=== PATIENT | female | born 1965 ===

== ENCOUNTER 2023-04-17 09:39 | Inpatient (IN) | payer OTHER ==
[~2023-04-17] VITALS: Ht 167.6 cm; Wt 64.9 kg
[2023-04-17] MEDS ORDERED: HYDROCHLOROTHIA25 MG PO (12:09)
[2023-04-17] MEDS ORDERED: DIOVAN320 MG PO (12:09)
[2023-04-17] MEDS ORDERED: HORIZANT300 MG PO (12:09)
[2023-04-17] MEDS ORDERED: NAPR500T14 PO (12:10)
[2023-04-17] MEDS ORDERED: ACID REDUCER20 M1 PO (12:10)
[2023-04-17] MEDS ORDERED: OMEGA 3-6-9 CO400 MG PO (12:10)
[2023-04-17] MEDS ORDERED: D3 DOTS50 MCG PO (12:11)
[2023-04-17] MEDS ORDERED: METFORMIN HCL1000 M2 PO (12:17)
[2023-04-24] MEDS ORDERED: CEFAZOLIN SODIUM 1,000 MG VIAL ONE ×2 (06:56→17:31)
[2023-04-24] MEDS ORDERED: VANCOMYCIN HCL 1,000 MG VIAL ONE (07:11)
[2023-04-24] MEDS ORDERED: BUPIVACAINE HCL/PF 0.5% 30ML ML ONE ×2 (07:11→07:16)
[2023-04-24] MEDS ORDERED: HEMOSTATIC MATRIX 1 KIT KIT TOP ONE ×2 (07:11→11:45)
[2023-04-24] MEDS ORDERED: DEXAMETHASONE SODIUM PHOSPHATE 4 MG/ML VIAL ONE (07:17)
[2023-04-24] MEDS ORDERED: LIDOCAINE HCL/EPINEPHRINE 50ML VIAL IJ ONE (09:28)
[2023-04-24] MEDS ORDERED: DEXAMETHASONE SODIUM PHOSPHATE 4 MG/ML VIAL IV ONE (11:45)
[2023-04-24] MEDS ORDERED: CEFAZOLIN SODIUM 1,000 MG VIAL IV ONE (11:45)
[2023-04-24] MEDS ORDERED: VANCOMYCIN HCL 1,000 MG VIAL IR ONE ×2 (11:45)
[2023-04-24] MEDS ORDERED: LIDOCAINE HCL 2% 20ML VIAL IJ ONE (11:45)
[2023-04-24] MEDS ORDERED: METHYLPREDNISOLONE ACETATE 40 MG/ML VIAL ONE (12:01)
[2023-04-24] MEDS ORDERED: METHYLPREDNISOLONE ACETATE 40 MG/ML VIAL IU ONE (12:15)
[2023-04-24] MEDS ORDERED: 0.9 % SODIUM CHLORIDE 1,000 ML IV SCH (12:45)
[2023-04-24] MEDS ORDERED: ENALAPRILAT DIHYDRATE 1.25 MG/ML VIAL IV PRN (12:45)
[2023-04-24] MEDS ORDERED: PROMETHAZINE HCL 50 MG/ML AMPUL IM PRN (12:45)
[2023-04-24] MEDS ORDERED: FAMOtidine 20 MG TABLET PO SCH (17:00)
[2023-04-24] MEDS ORDERED: DOCUSATE SODIUM 100MG CAP PO SCH (17:00)
[2023-04-24] MEDS ORDERED: CEFAZOLIN SODIUM 1,000 MG in 0.9 % SODIUM CHLORIDE 50 ML IV SCH (17:00)
[2023-04-24] MEDS ORDERED: ONDANSETRON HCL 2 MG/ML VIAL ONE (20:11)
[2023-04-24] MEDS ORDERED: GABAPENTIN 800 MG TABLET PO SCH (21:00)
[2023-04-25] MEDS ORDERED: CEFAZOLIN SODIUM 1,000 MG VIAL ONE (00:14)
[2023-04-25] MEDS ORDERED: ACETAMINOPHEN 500 MG GEL..CAP PO PRN (11:45)
[2023-04-25] MEDS ORDERED: NALOXONE HCL 0.4 MG/ML AMPUL IV PRN (13:30)
[2023-04-25] MEDS ORDERED: fentaNYL 25 MCG PATCH.TD72 TD SCH (13:30)
[2023-04-25] MEDS ORDERED: DEXAMETHASONE SODIUM PHOSPHATE 4 MG/ML VIAL IV SCH (17:00)
[2023-04-25] MEDS ORDERED: GABAPENTIN 300 MG CAPSULE PO SCH (17:00)
[2023-04-25] MEDS ORDERED: ACETAMINOPHEN 500 MG GEL..CAP PO SCH (18:00)
[2023-04-26 02:50] LABS: HEMATOCRIT 30.3 % (36.0-45.00); HEMOGLOBIN 10.2 g/dL (12.0-15.00); MEAN CELL VOLUME 88.3 fL (80.00-100.00); MEAN CORPUSCULAR HEMOGLOBIN 29.8 pg (27.00-32.0); MEAN CORPUSCULAR HGB CONC 33.7 g/dl (32.0-36.0); PLATELET COUNT 238 K/uL (150-450); RED BLOOD COUNT 3.43 M/uL (4.00-6.00); RED CELL DISTRIBUTION WIDTH 13.4 % (11.5-14.5)
[2023-04-26 03:01] LABS: CALCIUM 9.3 mg/dL (8.5-10.1); CREATININE SERUM 1.12 mg/dL (0.55-1.02); GFR 49.79; POTASSIUM 3.81 mEq/L (3.5-5.1)
== END 2023-04-26 13:47 | disposition home or self-care (01) | DRG 520 ==
LOC: O/R 04-24 06:13 → SURH 04-24 06:13
PROVIDERS: ADMIT Neurological Surgery; ATTEND Neurological Surgery
PROC: 0SB40ZZ Excision of Lumbosacral Disc, Open Approach (ICD-10-PCS; 2023-04-24)
PROC: 0QH004Z Insertion of Internal Fixation Device into Lumbar Vertebra, Open Approach (ICD-10-PCS; 2023-04-24)
PROC: 01NR0ZZ Release Sacral Nerve, Open Approach (ICD-10-PCS; 2023-04-24)
PROC: 01NB0ZZ Release Lumbar Nerve, Open Approach (ICD-10-PCS; 2023-04-24)
PROC: 00NY0ZZ Release Lumbar Spinal Cord, Open Approach (ICD-10-PCS; principal; 2023-04-24 08:00)
DX: M51.17 Intervertebral disc disorders with radiculopathy, lumbosacral region (principal); M48.07 Spinal stenosis, lumbosacral region; I10 Essential (primary) hypertension; E11.9 Type 2 diabetes mellitus without complications